=== PATIENT | male | born 1990 | race Caucasian/White ===

== ENCOUNTER 2018-09-22 17:08 | Emergency (ER) | payer OTHER, SELFPAY ==
[2018-09-22 17:08] VITALS: BP 150/74; PULSE 83; RESP 14; TEMP 36.4; O2SAT 96; BMI 40.6
--- NOTE | 2018-09-22 17:38 | CT_ITS ---
STUDY: CTA OF THE BRAIN REASON FOR EXAM: Male, 28 years old. Dizziness and confusion. Headache. RADIATION DOSAGE (If Supplied By Facility): CTDIvol = ( 32.07 ) mGy, DLP = ( 1649.25 ) mGycm TECHNIQUE: CT angiography was performed with a multi-detector CT scanner. Data acquisition was obtained from the skull base through the vertex following intravenous administration of Isovue 370 100ML IV. MIP images were reconstructed from the axial data set. Post-processing of the angiographic images was performed, with multiplanar reformation and 3D reconstruction. Individualized dose optimization techniques were used for this CT. COMPARISON: None. FINDINGS: Normal bilateral petrous carotid arteries. Normal right cavernous carotid artery with a normal supraclinoid bifurcation. Normal left cavernous carotid artery with a normal supraclinoid bifurcation. Normal right A1 segments of the anterior cerebral artery. Normal left A1 segments of the anterior cerebral artery. Normal intact anterior communicating artery (ACOM). Normal bilateral A2 segments of the anterior cerebral arteries. Normal right M1 and M2 segments of the middle cerebral arteries, with a normal M1 bifurcation. Normal left M1 and M2 segments of the middle cerebral arteries, with a normal M1 bifurcation. Normal right posterior communicating artery (PCOM). Normal left posterior communicating artery (PCOM). Normal bilateral vertebral arteries. Normal basilar artery with a normal basilar bifurcation. The visualized bilateral superior cerebellar (SCA) arteries are normal. Normal bilateral P1, P2 and visualized P3 segments of the posterior cerebral arteries. There is no demonstrated aneurysm of the [place] of [place]. There is no demonstrated abnormality of the visualized brain. CT/CTA Head W/WO Contrast IMPRESSION: Normal [place] without a demonstrated aneurysm or hemodynamically significant stenosis. Electronically Signed: Neto Benjamin MD at 19:11 EDT , Service support ,
--- NOTE | 2018-09-22 17:38 | CT_ITS ---
STUDY: CTA NECK WITH CONTRAST REASON FOR EXAM: Male, 28 years old. Headache and dizziness. RADIATION DOSAGE (If Supplied By Facility): CTDIvol = ( 32.07 ) mGy, DLP = ( 1649.25 ) mGycm TECHNIQUE: CT angiography with multi-detector data acquisition was performed from the aortic arch to the skull base following intravenous administration of Isovue 370 100ML IV. MIP images were reconstructed from the axial data set. Post-processing of the angiographic images was performed, with multiplanar reformation and 3D reconstruction. Individualized dose optimization techniques were used for this CT. COMPARISON: None. FINDINGS: AORTIC ARCH: Normal visualized aortic arch. Normal origins of the brachiocephalic, left common carotid, and left subclavian arteries. RIGHT CAROTID ARTERIES: Normal right common carotid artery (CCA). Normal right common carotid bulb. Normal origin of the right internal carotid (ICA) artery without a hemodynamically significant stenosis. Normal visualized cervical portion of the right internal carotid artery. Normal origin of the right external carotid artery (ECA). LEFT CAROTID ARTERIES: Normal left common carotid artery (CCA). Normal left common carotid bulb. Normal origin of the left internal carotid (ICA) artery without a hemodynamically significant stenosis. Normal visualized cervical portion of the left internal carotid artery. Normal origin of the left external carotid artery (ECA). VERTEBRAL ARTERIES: Normal bilateral vertebral arteries. CT/CTA Neck W/WO Contrast IMPRESSION: Normal bilateral cervical carotid and vertebral arteries. Electronically Signed: Neto Benjamin MD at 19:10 EDT , Service support ,
[2018-09-22] MEDS: DiphenhydrAMINE 50 MG/ML Syringe 25 MG IV (17:57)
[2018-09-22] MEDS: 0.9% Normal Saline 1,000 ML 1000 ML IV (17:57)
[2018-09-22] MEDS: Metoclopramide 10 MG/2 ML Vial IV (17:57)
[2018-09-22 18:19] LABS: Absolute Lymphocyte Count 2.43 X10^3/ul (0.83-4.51); Absolute Neutrophil Count 3.7 X10^3/uL (2.0-7.7); Basophil# 0.01 X10^3/uL; Basophil% 0.1 % (0-1); Eosinophils% 1.5 % (0-5); Hematocrit 45.5 % (40-54); Hemoglobin 15.4 g/dl (13.0-16.5); Lymphocyte # 2.43 X10^3/ul (4.0); Lymphocyte % 35.5 % (19-41); Mean Corp Hgb Conc 33.8 g/gl (32-36); Mean Corpuscular Hgb 28.3 pg (27.0-32.0); Mean Corpuscular Volume 83.6 fL (80-94); Mean Platelet Vol. 9.6 fl (6.2-12.0); Monocyte# 0.58 X10^3/uL; Monocyte% 8.5 % (0-10); Neutrophil # 3.73 X10^3/uL (2.7-7.7); Neutrophil % 54.4 % (47-70); Platelet Count 216 K/mm3 (150-450); RBC Distribution Width CV 12.5 % (11.6-14.6); RBC Distribution Width SD 37.5 fl (35.1-43.9); Red Blood Count 5.44 M/mm3 (4.6-6.2); White Blood Count 6.9 K/mm3 (4.4-11.0)
[2018-09-22 18:21] LABS: POSITIVE COUNT NO; POSITIVE DIFFERENTIAL NO; POSITIVE MORPHOLOGY NO
[2018-09-22 18:36] LABS: Anion Gap 2 (5-15); BUN 15 mg/dL (7-18); BUN/Creat Ratio 12.9 RATIO (10-20); Calcium,Total 8.3 mg/dL (8.5-10.1); Chloride 108 mmol/L (98-107); Creatinine, Serum 1.16 mg/dL (0.70-1.30); EST Glomerular Filtration Rate 81 mL/min (>60); Est Glom Filt Rate - Afr Amer 97 mL/min (>60); Estimated Creatinine Clearance 105.92 ml/min; Glucose 91 mg/dL (74-106); Potassium 3.9 mmol/L (3.5-5.1); Sodium Level 139 mmol/L (136-145)
[2018-09-22 19:09] VITALS: RESP 18
--- NOTE | 2018-09-22 19:36 | ED.DCSUM_ITS ---
- ER Visit Summary Date of Service: 09/22/18 Chief Complaint: [Headache and dizziness] History of Present Illness: The patient is a 28 M [presents the emergency department for the 5-day history of intermittent headaches. Patient currently rates headache as a 4 out of 10 and is mostly on his left side of his head. Patient was seen at urgent care and because he complained of some paresthesias in his forearm and into his hand they were worried about stroke so they sent him into the ER. Patient tells me he has no medical problems. Never been diagnosed with migraines. Patient does describe intermittent blurred vision and a hard time focusing at times. He does describe some photophobia at times. He said some nausea but no vomiting. He denies any falls or head injuries. He has not had any recent illness. Patient has no medical history. No family history of brain aneurysms or brain tumors. No family history of multiple sclerosis.] Patient states that he has had some intermittent paresthesias in his left forearm and into the palm but not the fingertips. At times he feels like his left arm may be a little more weak than the right. 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 Physical Examination: [HEENT-PERRLA, EOMI. Cranial nerves II through XII grossly intact. TMs clear. Mucous membranes moist. No adenopathy. Cardiovascular-regular rate and rhythm without murmur or ectopy Lungs-clear to auscultation, chest wall stable without crepitus or subcu emphysema Abdomen-normoactive bowel sounds, soft, nontender, no rebound or rigidity, no peritoneal signs. Neuro gbwo-[id number]-vowb and heel mendez testing within normal limits, negative Romberg, negative pronator drift, fundi benign Extremities-intact ?4, normal range of motion, normal pulses, atraumatic] Test Results: [CBC with differential is normal. Chemistries were normal. CT of the brain and CTA of the neck were obtained and both were normal.] Emergency Department Course and Treatment: [Patient was medicated with Reglan and Benadryl and given a liter normal same fluid bolus and his headache resolved.] Treatment Plan: [Patient will be referred to neurology for follow-up if symptoms persist and she understands I cannot rule out possibility for MS. It is possible his symptoms may be complex migraine related.] Disposition: [Discharged home in stable condition] Impression: [Cephalgia Paresthesias left arm] This note was generated with [employer] dictation software. It may contain incorrect words, spelling, and punctuation that were not noted in review of the chart prior to signing ED Disposition - Plan for ED Patient: Referrals: Timothy Briceño DO [Primary Care Provider] -
--- NOTE | 2018-09-22 19:36 | ED.DEP ---
ED Disposition - Plan for ED Patient: Instructions: ED Cephalgia Unspecified Referrals: Timothy Briceño DO [Primary Care Provider] - Pascual Egan MD [STAFF PHYSICIAN] - 5-7 Days
[2018-09-22 19:50] VITALS: BP 137/70; PULSE 78; RESP 19
== END 2018-09-22 19:54 | disposition home or self-care (01) ==
PROVIDERS: Emergency Provider Emergency Medicine; Family Provider Preventive Medicine Occupational Medicine; PCP Preventive Medicine Occupational Medicine
DX: R51 Headache (principal); R20.2 Paresthesia of skin
CPT/HCPCS: 70496; 70498; 80048; 85025; 96361; 96374; 96375; 99283; J7030; J7040; Q9967

== ENCOUNTER 2018-11-13 22:08 | Emergency (ER) | payer OTHER, SELFPAY ==
[2018-11-13 22:09] VITALS: BP 165/85; PULSE 69; RESP 18; TEMP 35.7; O2SAT 98; BMI 40.3
[2018-11-13 22:12] VITALS: BP 158/88; PULSE 72; RESP 12; O2SAT 99
--- NOTE | 2018-11-13 22:19 | EKG12_ITS ---
Test Reason : CP Blood Pressure : / mmHG Vent. Rate : 076 BPM Atrial Rate : 076 BPM P-R Int : 180 ms QRS Dur : 156 ms QT Int : 422 ms P-R-T Axes : 054 007 106 degrees QTc Int : 474 ms Normal sinus rhythm Left bundle branch block Abnormal ECG Confirmed by ROHIT QURESHI ([id number]), managing editor GARCIA DEL RIO ([id number]) on 11/17/2018 2:04:21 PM Referred By: Confirmed By:ROHIT QURESHI
[2018-11-13 22:20] VITALS: O2SAT 98
--- NOTE | 2018-11-13 22:22 | RAD_ITS ---
STUDY: X-RAY CHEST REASON FOR EXAM: Male, 28 years old. Chest pain TECHNIQUE: Single AP portable view of the chest. COMPARISON: None. FINDINGS: The lungs are clear and expanded. There is no demonstrated pleural abnormality. Normal size heart. Normal mediastinum and freddy. Normal visualized pulmonary arteries. Normal visualized aortic arch and descending thoracic aorta. Normal visualized thoracic spine. Normal visualized ribs, clavicles, and shoulders. There is no demonstrated abnormality of the visualized soft tissue structures of the upper abdomen. RAD/Chest 1 View (Portable) IMPRESSION: Normal x-ray examination of the chest. Electronically Signed: Neto Benjamin MD at 22:38 EDT , Service support ,
[2018-11-13 22:29] LABS: Absolute Lymphocyte Count 2.44 X10^3/ul (0.83-4.51); Absolute Neutrophil Count 2.3 X10^3/uL (2.0-7.7); Basophil# 0.01 X10^3/uL; Basophil% 0.2 % (0-1); Eosinophil# 0.13 X10^3/uL; Eosinophils% 2.5 % (0-5); Hematocrit 41.2 % (40-54); Hemoglobin 14.2 g/dl (13.0-16.5); Lymphocyte # 2.44 X10^3/ul (4.0); Lymphocyte % 46.5 % (19-41); Mean Corp Hgb Conc 34.5 g/gl (32-36); Mean Corpuscular Hgb 28.9 pg (27.0-32.0); Mean Corpuscular Volume 83.7 fL (80-94); Mean Platelet Vol. 9.3 fl (6.2-12.0); Monocyte% 7.6 % (0-10); Neutrophil # 2.26 X10^3/uL (2.7-7.7); POSITIVE COUNT NO; POSITIVE DIFFERENTIAL NO; POSITIVE MORPHOLOGY NO; Platelet Count 187 K/mm3 (150-450); RBC Distribution Width CV 12.8 % (11.6-14.6); RBC Distribution Width SD 38.6 fl (35.1-43.9); Red Blood Count 4.92 M/mm3 (4.6-6.2); White Blood Count 5.3 K/mm3 (4.4-11.0)
[2018-11-13 22:46] LABS: Anion Gap 6 (5-15); BUN 16 mg/dL (7-18); BUN/Creat Ratio 14.7 RATIO (10-20); Calcium,Total 8.6 mg/dL (8.5-10.1); Chloride 109 mmol/L (98-107); Creatinine, Serum 1.09 mg/dL (0.70-1.30); EST Glomerular Filtration Rate 86 mL/min (>60); Est Glom Filt Rate - Afr Amer 105 mL/min (>60); Estimated Creatinine Clearance 112.72 ml/min; Glucose 96 mg/dL (74-106); Potassium 3.7 mmol/L (3.5-5.1); Sodium Level 143 mmol/L (136-145)
--- NOTE | 2018-11-13 22:47 | ED.DCSUM_ITS ---
- ER Visit Summary Date of Service: 11/13/18 Chief Complaint: Chest pain History of Present Illness: The patient is a 28 M presenting with left-sided chest pain. He states this started 2.5 hours prior to arrival. Pain is continuous. He states the pain is worsened when he moves his left arm. It is not worsened with deep breathing. He denies PE/DVT risk factors. He has had a cough. He states he was started on new medication for allergies today, he does not recall which medication. Denies difficulty breathing or swallowing. He denies fever. Denies abdominal pain. Denies other complaints. Physical Examination: Vitals are stable. Patient is afebrile. Alert no acute distress. HEENT exam is unremarkable. Neck is supple. Lungs are clear and equal bilaterally. Left chest point tenderness with no crepitus Heart is regular rate and rhythm. Abdomen is soft nontender nondistended. Extremities are unremarkable. Skin is warm and dry. No focal neurologic deficit. Remainder of exam is unremarkable. Emergency Department Course and Treatment: EKG is sinus with rate of 76, left bundle branch block, unchanged from previous. Chest x-ray shows no acute process. CBC, chemistries unremarkable. Troponin is negative. D-dimer negat tu. On reevaluation, patient is feeling improved. Delta troponin is pending at this time and will be checked by the oncoming physician. Plan will be discharge home to follow-up with his primary care physician if his delta troponin is normal. Disposition: Pending Impression: Atypical chest pain This note was generated with [employer] dictation software. It may contain incorrect words, spelling, and punctuation that were not noted in review of the chart prior to signing ED Disposition - Plan for ED Patient: Instructions: ED Chest Pain Atypical Unkn Cause Referrals: Timothy Briceño DO [Primary Care Provider] -
[2018-11-13] MEDS: Aspirin 325 MG Tablet PO (22:54)
[2018-11-13 23:03] LABS: D-Dimer Quantitative (DVT/PE) < 0.27 FEU/ug/m (0.27-0.49)
[2018-11-14 01:03] VITALS: BP 138/95; PULSE 57; RESP 16; O2SAT 93
--- NOTE | 2018-11-14 01:32 | ED.DEP ---
ED Disposition - Plan for ED Patient: Instructions: ED Chest Pain Atypical Unkn Cause Referrals: Timothy Briceño DO [Primary Care Provider] -
[2018-11-14 02:31] VITALS: BP 136/74; PULSE 81; RESP 22; O2SAT 98
--- NOTE | 2018-11-14 02:32 | ED.RN ---
THIS NURSE REVIEWED D/C INSTRUCTIONS WITH PT. PT VERBALIZED UNDERSTANDING OF INSTRUCTIONS. IV D/C. IV CATHETER INTACT. PT TOLERATED WELL. PT DENIES FURTHER NEEDS OR QUESTIONS AT THIS TIME. PT AMBULATES FROM ROOM ON OWN WITHOUT ASSISTANCE FROMRosanna ROSE
== END 2018-11-14 02:33 | disposition home or self-care (01) ==
PROVIDERS: Emergency Medicine; Emergency Provider Emergency Medicine; Family Provider Preventive Medicine Occupational Medicine; PCP Preventive Medicine Occupational Medicine
DX: R07.89 Other chest pain (principal); I44.7 Left bundle-branch block, unspecified
CPT/HCPCS: 71045; 80048; 84484; 85025; 85379; 93005; 99285; A4216

== ENCOUNTER → 2019-01-14 | Outpatient (CLI) | payer OTHER, SELFPAY ==
--- NOTE | 2019-01-14 10:11 | NEURO ---
NCS and/or EMG Patient Report Ordering Doctor: Ned Reynoso DATE OF SERVICE: 01/14/19 This is a left upper extremity nerve conduction study performed on this 29-year-old male with a history of tingling in the left palm and fourth and fifth digits for several months. There is also left shoulder pain elbow and wrist pain. Left upper extremity sensory and motor nerve conduction studies performed. The median motor distal latency is mildly prolonged with preservation of amplitude and conduction velocity. The median sensory response is normal. The ulnar motor and sensory and radial sensory responses are normal. The median and ulnar F-wave latencies are preserved. Impression: This is an abnormal nerve conduction study of left upper extremity consistent with mild to moderate carpal tunnel syndrome at the left wrist.
== END | disposition home or self-care (01) ==
LOC: PSN 07:11
PROVIDERS: Family Provider Preventive Medicine Occupational Medicine; PCP Preventive Medicine Occupational Medicine; Referring Provider Specialist; Visit Provider Specialist
DX: G56.22 Lesion of ulnar nerve, left upper limb (principal)
CPT/HCPCS: 95909